=== PATIENT | female | born 1955 | race Caucasian/White ===

== ENCOUNTER 2017-11-11 12:07 | Emergency (ER) | payer OTHER ==
[~2017-11-11] VITALS: Ht 152.4 cm; Wt 64.4 kg
[2017-11-11] MEDS ORDERED: ONDANSETRON 4 MG TAB.RAPDIS ONE (13:00)
[2017-11-11] MEDS ORDERED: HYDROCODONE/APAP 5/325MG 1 EACH TABLET PO ONE (13:00)
[2017-11-11] MEDS ORDERED: ONDANSETRON 4 MG TAB.RAPDIS PO ONE (13:00)
[2017-11-11] MEDS ORDERED: HYDROCODONE/APAP 5/325MG 1 EACH TABLET ONE (13:00)
[2017-11-11] MEDS ORDERED: MECLIZINE HCL 12.5 MG TABLET PO ONE (13:00)
[2017-11-11] MEDS ORDERED: MECLIZINE HCL 25 MG TABLET ONE (13:00)
--- NOTE | 2017-11-11 14:05 | NUR ---
Patient discharged to home in stable condition. Written and verbal after care instructions given. Patient verbalizes understanding of instruction. ambulatory with a steady gait.
[2017-11-11 14:06] VITALS: BP 105/62
== END 2017-11-11 14:07 | disposition home or self-care (01) ==
LOC: ER 12:08
DX: S13.4XXA Sprain of ligaments of cervical spine, initial encounter (principal); M47.896 Other spondylosis, lumbar region; J45.909 Unspecified asthma, uncomplicated; Z91.013 Allergy to seafood; Z91.018 Allergy to other foods; V49.49XA Driver injured in collision with other motor vehicles in traffic accident, initial encounter; Y93.89 Activity, other specified; Y92.413 State road as the place of occurrence of the external cause; Y99.8 Other external cause status
CPT/HCPCS: 70450-TC; 72125-TC; 72131-TC; A4606; J8597; Q0162; Z7610